=== PATIENT | female | born 1960 | race African-American/Black ===

== ENCOUNTER 2019-08-19 09:46 | Day surgery (SDC) | payer OTHER ==
[2019-08-18 18:31] VITALS: BMI 34.7
--- NOTE | 2019-08-19 09:43 | HP ---
[facility] - Chief Complaint Chief Complaint: left shoulder pain - Past Medical History Allergies/Adverse Reactions: Allergies Allergy/AdvReac Type Severity Reaction Status Date / Time No Known Allergies Allergy Verified 08/18/19 18:31 - Current Medications Current Medications: Home Medications Medication Instructions Recorded Hydrocodone/Acetaminophen 1 each PO Q6H #30 tablet MDD 4 08/19/19 [Hydrocodone-Acetamin 5-325 mg] Satellite Physical Exam - Physical Examination General Appearance: Well Nourished, Well Developed, Alert & Oriented x3 ENT: Clear Lung: Normal air movement Extremities: Other (left shoulder- + ttp ,decr rom, + neer, + delatorre, + empty can, nvi, MRI + rct) Neurological: Intact, Alert, Oriented Satellite Impression/Plan - Impression/Plan Impression: left shoulder rct Operative Procedure: left shoulder arthroscopy with RCR, SAD Date to be Performed: 08/19/19
[2019-08-19] MEDS ORDERED: MIDAZOLAM HCL 2 MG/2 ML SINGLE DOSE VIAL ONE (13:27)
[2019-08-19] MEDS ORDERED: ROPIVACAINE HCL 0.5% 30ML VIAL ONE (13:28)
[2019-08-19] MEDS ORDERED: PROMETHAZINE HCL 25 MG/1 ML VIAL IVPUSH PRN (17:14)
[2019-08-19] MEDS ORDERED: ONDANSETRON 4 MG/2 ML VIAL IVPUSH PRN (17:14)
[2019-08-19] MEDS ORDERED: oxyCODONE HCL 5 MG TABLET PO PRN ×2 (17:14→17:15)
[2019-08-19] MEDS ORDERED: traMADol HCL 50 MG TABLET PO PRN (17:15)
[2019-08-19] MEDS ORDERED: ACETAMINOPHEN 325 MG TABLET (FP) PO SCH (17:15)
--- NOTE | 2019-08-19 18:09 | OP ---
Operative Note - Note: Operative Date: 08/19/19 ([facility]) Pre-Operative Diagnosis: left shoulder impingement, rct Operation: left shoulder arthroscopy with SAD, distal clavicle excision, JOSEPHINE Post-Operative Diagnosis: Same as Pre-op Surgeon: Phillip Kaur Project Surveyor: Fausto Melendze Anesthesia: General, Local Specimens Removed: shavings Estimated Blood Loss (mls): 10
[2019-08-19 19:04] VITALS: TEMP 97.8
[2019-08-19 19:06] VITALS: PULSE 73
[2019-08-19 19:54] VITALS: BP 160/90
--- NOTE | 2019-08-20 09:51 | OP ---
DATE OF OPERATION: 08/19/2019 PREOPERATIVE DIAGNOSES: Left shoulder impingement syndrome and adhesive capsulitis, possible rotator cuff tear. POSTOPERATIVE DIAGNOSES: Left shoulder impingement syndrome and adhesive capsulitis. SURGEON: Chiquita Sampson MD PIN DRAFTER OPERATOR: HOLGER Odom RN PROCEDURES: Chetna Fitch, REF-COUNCILLOR [employer] ANESTHESIA: Left interscalene block with LMA anesthesia. DRAINS: None. COMPLICATIONS: None. BLOOD LOSS: Minimal. BLOOD GIVEN: None. FLUID REPLACEMENT: Plasma-Lyte 700 mL. SURGERY: Left shoulder arthroscopy, subacromial decompression, distal clavicle excision and manipulation under anesthesia. INDICATIONS: This patient is a 58-year-old female with a preoperative diagnosis of severe left shoulder impingement syndrome, adhesive capsulitis and a small rotator cuff tear. After understanding the potential risks, complications, alternatives and benefits of surgery versus nonsurgical treatment the patient elected to undergo this procedure. DESCRIPTION OF PROCEDURE: The patient was brought to the operating room, peripheral IV placed and IV sedation given. Ancef 2 g IV were given. Left interscalene block was performed. LMA anesthesia was induced. She was placed into the beach-chair position with ample padding throughout. I did a manipulation under anesthesia. I was able to feel a release in both forward flexion and abduction, gaining at least 15 to 20 degrees in each plane. The left upper extremity was prepped and draped in a sterile fashion. Bony landmarks were marked out with a marking pen. A posterior portal was established and a diagnostic glenohumeral arthroscopy was performed. Patient had a tremendous amount of synovitis intraarticularly, a frayed biceps tendon, a frayed labrum, a frayed undersurface rotator cuff and therefore an anterior portal was established under direct visualization using a spinal needle. A No. 15 scalpel blade was used to make a skin incision and a Green cannula was introduced into the glenohumeral joint. Using a combination of the ArthroCare wand and a straight shaver I did an synovectomy and debrided the frayed edges of the biceps tendon, labrum and undersurface of the rotator cuff. Once this was done I had much better visualization. The patient had significant osteoarthritis of the glenohumeral joint, grade 3 on both sides, but definitely some degenerative articular cartilage. This was debrided with the straight shaver. I looked at the undersurface of the rotator cuff, put the arm through a full range of motion. Actually it looked good. I did not see any undersurface rotator cuff tear. Next our attention turned to the subacromial space. The patient had a tremendous amount of inflammatory bursitis. A lateral portal was established under direct visualization. I took a spinal needle and a Green cannula was introduced into the subacromial space. The ArthroCare wand was used to do an extensive debridement/soft tissue bursectomy. Once this was done this revealed a very large subacromial spur and a small distal clavicular spur. These were both taken down with a 5.5-mm oval bur fine tuned in reverse and then with a shaver fine tuned further to remove all bony debris. Once the bursectomy was completed and the subacromial distal clavicle excision/decompression was complete I put the arm through a full range of motion. There was no point of compression. Now there was plenty of room. I also directly visualized the top surface of the rotator cuff. There were no signs of a rotator cuff tear whatsoever. Therefore, the area was copiously irrigated and washed out. All instrumentation and excess saline were removed. The arthroscopy portals were closed with 3-0 nylon sutures. The area was then washed and dried, covered with an Aquacel dressing. The patient was placed into just a sling, extubated, brought out of the beach-chair position. There were no complications during the case. Blood loss was basically zero and total operative time was about 35 minutes. The patient tolerated the procedure quite well. CHIQUITA SAMPSON M.D. [id number]
--- NOTE | 2019-08-25 14:17 | PATH ---
Surgical Pathology Report Patient Name: YG FERNANDO [facility]. Rec. #: [id number] /Age/Gender: 1960 (Age: 58) / F Account: [id number] Location: [facility] SURGICAL Taken: 08/19/2019 Received: 08/20/2019 Reported: 08/25/2019 Physicians: Phillip Kaur M.D. Specimen(s) Received LEFT SHOULDER SHAVINGS Clinical History Left shoulder impingement syndrome Final Diagnosis SHOULDER, LEFT, ARTHROSCOPIC SHAVINGS: CARTILAGE, FIBROSYNOVIAL TISSUE, BONE AND SKELETAL MUSCLE. Electronically Signed Sarahi Morataya M.D. Gross Description Received in formalin, labeled "left shoulder shavings," is a 6.5 x 5.5 x 0.8 cm. aggregate of lobo-yellow soft tissue fragments. A auto claim representative portion is submitted in one cassette. /08/20/201908/20/2019
== END 2019-08-19 19:50 | disposition home or self-care (01) ==
LOC: JASU-SURG 09:46
PROVIDERS: ATTEND Orthopaedic Surgery
PROC: 0PBB4ZZ Excision of Left Clavicle, Percutaneous Endoscopic Approach (ICD-10-PCS; 2019-08-19)
PROC: 0RNK4ZZ Release Left Shoulder Joint, Percutaneous Endoscopic Approach (ICD-10-PCS; principal; 2019-08-19 12:30)
DX: M75.42 Impingement syndrome of left shoulder (principal); M75.02 Adhesive capsulitis of left shoulder; E11.9 Type 2 diabetes mellitus without complications; I10 Essential (primary) hypertension; K21.9 Gastro-esophageal reflux disease without esophagitis
CPT/HCPCS: 88304-TC; 94760